=== PATIENT | female | born 1995 | race Caucasian/White ===

== ENCOUNTER 2020-10-28 06:00 | Inpatient (IN) | payer OTHER ==
[2020-10-28] MEDS ORDERED: CITRIC ACID/SODIUM CITRATE 30 ML UNIT-DOSE CUP PO ONE (06:30)
[2020-10-28] MEDS ORDERED: ELECTROLYTE-148 SOLN 500 ML IV ONE (06:30)
[2020-10-28] MEDS ORDERED: ELECTROLYTE-148 SOLN 1,000 ML IV SCH ×2 (07:00→08:00)
[2020-10-28 07:03] VITALS: BMI 29.2
[2020-10-28] MEDS ORDERED: diphenhydrAMINE HCL 25 MG CAPSULE (FP) PO PRN (08:01)
[2020-10-28] MEDS ORDERED: BENZOCAINE 28 GM HEMORRHOIDAL OINTMENT RC PRN (08:01)
[2020-10-28] MEDS ORDERED: WITCH HAZEL 50% (TUCKS) 40 PAD/JAR PAD TP PRN (08:01)
[2020-10-28] MEDS ORDERED: ACETAMINOPHEN 325 MG TABLET (FP) PO PRN ×2 (08:01→09:47)
[2020-10-28] MEDS ORDERED: METHYLERGONOVINE MALEATE 0.2 MG/1 ML AMP IM PRN (08:01)
[2020-10-28] MEDS ORDERED: BENZOCAINE 20% 57 GM BOTTLE TP PRN (08:01)
[2020-10-28] MEDS ORDERED: OXYTOCIN 20 UNITS in 0.9% NS 40 UNIT/2,000 ML INFUS.BAG IV ONE (08:46)
[2020-10-28] MEDS ORDERED: PHENYLEPHRINE HCL 10 MG/1 ML SINGLE DOSE VIAL ONE (08:50)
[2020-10-28] MEDS ORDERED: SUCCINYLCHOLINE CHLORIDE 200 MG/10 ML SYRINGE ONE (08:50)
[2020-10-28] MEDS ORDERED: ceFAZolin SODIUM 1 GM VIAL ONE (08:50)
[2020-10-28] MEDS ORDERED: OXYTOCIN 10 UNITS/ML VIAL ONE (08:50)
[2020-10-28] MEDS ORDERED: morphine SULFATE/PF 0.5 MG/ML (2cc Syringe - QUVA) ONE (08:51)
[2020-10-28] MEDS ORDERED: ePHEDrine SULFATE 50 MG/1 ML AMPULE ONE (08:51)
[2020-10-28] MEDS ORDERED: PROPOFOL 20 ML ONE (08:51)
[2020-10-28] MEDS ORDERED: IBUPROFEN 600 MG TABLET (FP) PO PRN (09:47)
[2020-10-28] MEDS ORDERED: ONDANSETRON 4 MG/2 ML VIAL IVPUSH PRN (09:47)
[2020-10-28] MEDS: OXYTOCIN 20 UNITS in 0.9% NS 20 UNIT/1,000 ML INFUS.BAG IV SCH ×2 (10:20→16:30)
[2020-10-28] MEDS ORDERED: KETOROLAC TROMETHAMINE 30 MG/1 ML VIAL ONE (10:22)
[2020-10-28 10:52] LABS: CORD BASE EXCESS -1.9 mmol/L (0-2); CORD HCO3 22.2 mmHg (20-29); CORD PCO2 36.4 mmHg (30-78); CORD pH 7.404 (7.14-7.44)
[2020-10-28] MEDS: IBUPROFEN 800 MG/8 ML IJ IVPB PRN (13:21)
[2020-10-29] MEDS: IBUPROFEN 800 MG/8 ML IJ IVPB PRN ×2 (00:35→05:40)
[2020-10-29] MEDS ORDERED: oxyCODONE HCL 5 MG TABLET PO PRN (08:01)
[2020-10-29] MEDS ORDERED: BISACODYL 10 MG SUPP.RECT PR PRN (08:02)
[2020-10-29 08:11] LABS: HEMATOCRIT 23.3 % (32.4-45.2); HEMOGLOBIN 7.2 GM/dL (10.7-15.3); MCH 22.2 pg (25.7-33.7); MCHC 30.8 g/dl (32.0-36.0); MEAN PLT VOLUME 8.6 fl (7.5-11.1); PLATELET COUNT 203 K/MM3 (134-434); RBC 3.23 M/mm3 (3.60-5.2); RDW 19.6 % (11.6-15.6); WHITE BLOOD COUNT 14.8 K/mm3 (4.0-10.0)
[2020-10-29] MEDS ORDERED: HYDROmorphone HCL 2 MG TABLET ONE (08:22)
[2020-10-29] MEDS: IBUPROFEN 600 MG TABLET (FP) PO PRN ×2 (14:07→18:48)
[2020-10-29] MEDS: oxyCODONE HCL 5 MG TABLET PO PRN ×2 (14:07→18:49)
[2020-10-29] MEDS: SIMETHICONE 80 MG TAB.CHEW (FP) PO PRN ×2 (14:08→22:02)
[2020-10-30 09:33] VITALS: BP 117/80; PULSE 82; TEMP 98.1
[2020-10-30] MEDS ORDERED: SENNOSIDES/DOCUSATE COMBO (SENNA PLUS) TABLET (UD) PO PRN (22:00)
[2020-10-31] MEDS ORDERED: ACETAMINOPHEN 500 MG TABLET (FP) PO PRN (23:30)
[2020-10-31] MEDS ORDERED: ELECTROLYTE-148 SOLN 1,000 ML IV SCH (23:30)
[2020-11-01] MEDS ORDERED: CLINDAMYCIN 600MG PREMIX IVPB 50 ML IVPB SCH (02:00)
[2020-11-01] MEDS ORDERED: AMPICILLIN NA/SULBACTAM NA 1.5 GM in SODIUM CHLORIDE 100 ML IVPB SCH (03:00)
[2020-11-01 08:01] LABS: BASO % 0.7 % (0-2.0); EOS % 2.8 % (0-4.5); HEMATOCRIT 23.5 % (32.4-45.2); HEMOGLOBIN 7.3 GM/dL (10.7-15.3); LYMPH % 17.4 % (8-40); MCH 22.2 pg (25.7-33.7); MCHC 30.9 g/dl (32.0-36.0); MEAN CELL VOLUME 71.7 fl (80-96); MEAN PLT VOLUME 8.2 fl (7.5-11.1); MONO % 8.9 % (3.8-10.2); NEUT % 70.2 % (42.8-82.8); PLATELET COUNT 230 K/MM3 (134-434); RBC 3.28 M/mm3 (3.60-5.2); RDW 21.4 % (11.6-15.6); WHITE BLOOD COUNT 9.5 K/mm3 (4.0-10.0)
== END 2020-10-30 11:55 | disposition home or self-care (01) | DRG 540 ==
LOC: JLDR 06:00 → J3W 12:25
PROVIDERS: ADMIT Obstetrics & Gynecology; ATTEND Obstetrics & Gynecology
PROC: 10D00Z1 Extraction of Products of Conception, Low, Open Approach (ICD-10-PCS; principal; 2020-10-28)
DX: O34.211 Maternal care for low transverse scar from previous cesarean delivery (principal); O69.81X0 Labor and delivery complicated by cord around neck, without compression, not applicable or unspecified; Z3A.39 39 weeks gestation of pregnancy; Z37.0 Single live birth
CPT/HCPCS: 36415; 36600; 82803; 85025; 85027; 86850; 86900; 86901; 88307-TC

== ENCOUNTER 2020-10-31 19:16 | Inpatient (IN) | payer OTHER ==
[2020-10-31 19:56] VITALS: BMI 27.0
[2020-10-31] MEDS ORDERED: SODIUM CHLORIDE 0.9% 500 ML INFUS.BAG IV ONE (21:07)
[2020-10-31 21:38] LABS: BASO % 0.9 % (0-2.0); HEMATOCRIT 24.6 % (32.4-45.2); HEMOGLOBIN 7.5 GM/dL (10.7-15.3); LYMPH % 12.5 % (8-40); MCH 21.7 pg (25.7-33.7); MCHC 30.3 g/dl (32.0-36.0); MEAN CELL VOLUME 71.6 fl (80-96); MEAN PLT VOLUME 8.2 fl (7.5-11.1); MONO % 7.6 % (3.8-10.2); PLATELET COUNT 246 K/MM3 (134-434); RBC 3.43 M/mm3 (3.60-5.2); WHITE BLOOD COUNT 12.4 K/mm3 (4.0-10.0)
[2020-10-31 21:45] LABS: INR 0.92 (0.83-1.09); PROTHROMBIN TIME (PATIENT) 11.4 SEC (9.7-13.0)
[2020-10-31 21:48] LABS: ACTIVATED PTT 25.5 SECONDS (25.2-36.5)
[2020-10-31] MEDS ORDERED: CLINDAMYCIN 900 MG PREMIX IVPB 900 MG/50 ML BAG IVPB ONE ×2 (21:53→22:34)
[2020-10-31] MEDS ORDERED: GENTAMICIN INJECTION 100 MG in SODIUM CHLORIDE 97.5 ML IVPB ONE (21:53)
[2020-10-31 21:59] LABS: POTASSIUM 4.6 mmol/L (3.5-5.1)
[2020-10-31 22:00] LABS: CALCIUM 9.2 mg/dL (8.5-10.1)
[2020-10-31 22:01] LABS: BLOOD UREA NITROGEN 7.5 mg/dL (7-18)
[2020-10-31 22:04] LABS: CREATININE 0.5 mg/dL (0.55-1.3)
[2020-10-31 22:06] LABS: BILIRUBIN,TOTAL 0.5 mg/dL (0.2-1); TOT PROT 6.9 g/dl (6.4-8.2)
[2020-10-31 22:43] LABS: ANISOCYTOSIS 2+; MACROCYTOSIS 2+
[2020-10-31 23:07] LABS: EPI CELLS 35 /uL (0-25.1); HYALINE CASTS 3 /uL (0-3.1); URINE APPEARANCE CLEAR; URINE BACTERIA 128 /uL (0-1359); URINE BILIRUBIN NEGATIVE (NEGATIVE); URINE COLOR YELLOW; URINE GLUCOSE (UA) NEGATIVE (NEGATIVE); URINE KETONE NEGATIVE (NEGATIVE); URINE LEUK ESTERASE NEGATIVE (NEGATIVE); URINE NITRITE NEGATIVE (NEGATIVE); URINE PROTEIN TRACE (NEGATIVE); URINE RBC 10 /uL (0-23.9); URINE WBC 17 /uL (0-25.8)
[2020-10-31] MEDS ORDERED: ELECTROLYTE-148 SOLN 1,000 ML IV SCH (23:30)
[2020-11-01] MEDS: ACETAMINOPHEN 500 MG TABLET (FP) PO PRN ×2 (02:09→09:10)
[2020-11-01] MEDS: CLINDAMYCIN 600MG PREMIX IVPB 600 MG/50 ML BAG IVPB SCH ×2 (02:15→09:49)
[2020-11-01] MEDS ORDERED: oxyCODONE HCL 5 MG TABLET PO PRN (02:33)
[2020-11-01] MEDS ORDERED: ACETAMINOPHEN 325 MG TABLET (FP) PO PRN (02:34)
[2020-11-01] MEDS: AMPICILLIN NA/SULBACTAM NA 1.5 GM in SODIUM CHLORIDE 100 ML IVPB SCH ×2 (03:17→09:10)
[2020-11-01 10:02] VITALS: BP 138/80; PULSE 65; TEMP 97.6
== END 2020-11-01 11:00 | disposition home or self-care (01) | DRG 561 ==
LOC: JER 19:16 → JERBED 23:27 → J3W 11-01 00:35
PROVIDERS: ADMIT Obstetrics & Gynecology; ATTEND Obstetrics & Gynecology
DX: O86.12 Endometritis following delivery (principal); O86.4 Pyrexia of unknown origin following delivery; O91.22 Nonpurulent mastitis associated with the puerperium; O92.79 Other disorders of lactation
CPT/HCPCS: 36415; 76856-TC; 80053; 81003; 83605; 85025; 85610; 85730; 87040; 87086; 87186; 99285-25; C9803; U0003